=== PATIENT | female | born 1985 | race Caucasian/White ===

== ENCOUNTER 2017-01-17 20:23 | Emergency (ER) | payer MEDICAID, OTHER ==
[~2017-01-17] VITALS: Ht 172.7 cm; Wt 90.7 kg
[~2017-01-17 20:23] MED LIST: BENZ1TAB7 PO; DIPH25CA83 PO; ESCI10TA PO; FLUP10TA7 PO
[2017-01-17 20:52] LABS: *URINE HCG, QUAL NEGATIVE (NEGATIVE)
[2017-01-17 21:01] LABS: BASOPHILS % (AUTO) 0.6 % (0.0-2.0); EOSINOPHILS # (AUTO) 0.1 K/uL (0.0-0.7); EOSINOPHILS % (AUTO) 1.1 % (0.0-7.0); HEMATOCRIT 39.7 % (37-47); HEMOGLOBIN 13.8 G/DL (12.0-16.0); LYMPHOCYTES # (AUTO) 2.8 K/UL (0.8-4.8); LYMPHOCYTES % (AUTO) 35.3 % (20.5-51.5); MEAN CORPUSCULAR HEMOGLOBIN 31.9 UUG (27.0-31.0); MEAN CORPUSCULAR HGB CONC 35 g/dL (32.0-37.0); MONOCYTES # (AUTO) 0.5 K/UL (0.1-1.30); MONOCYTES % (AUTO) 5.9 % (0.0-11.0); NEUTROPHILS # (AUTO) 4.7 K/UL (1.8-8.9); NEUTROPHILS % (AUTO) 57.1 % (38.5-71.5); PLATELET COUNT (AUTO) 265 K/UL (150-450); RED BLOOD CELL COUNT(AUTO) 4.32 MIL/UL (4.2-5.4); WHITE BLOOD COUNT (AUTO) 8.1 K/UL (4.0-11.2)
[2017-01-17 21:07] LABS: CREATININE 0.8 mg/dL (0.6-1.3); POTASSIUM 3.9 mmol/L (3.5-5.1)
[2017-01-17 21:13] LABS: BILIRUBIN,TOTAL 0.2 mg/dL (0.2-1.0); TOTAL PROTEIN, SERUM 7.4 g/dL (6.4-8.2)
[2017-01-17] MEDS ORDERED: LORA0.5T PO (21:48)
[2017-01-17] MEDS ORDERED: TEMA30CA PO (21:48)
--- NOTE | 2017-01-17 21:59 | NUR ---
Patient discharged to home in stable conditon. Written and verbal after care instructions given. Patient verbalizes understanding of instructions.
== END 2017-01-17 22:00 | disposition home or self-care (01) ==
LOC: ER 20:23
DX: N92.0 Excessive and frequent menstruation with regular cycle (principal); N92.1 Excessive and frequent menstruation with irregular cycle; F17.210 Nicotine dependence, cigarettes, uncomplicated; Z88.0 Allergy status to penicillin; Z88.8 Allergy status to other drugs, medicaments and biological substances
CPT/HCPCS: 36415; 84703; 85025; 85610; A4663

== ENCOUNTER 2017-04-29 19:32 | Emergency (ER) | payer MEDICAID ==
[~2017-04-29] VITALS: Ht 172.7 cm; Wt 99.8 kg
[~2017-04-29 19:32] MED LIST changes: -DIPH25CA83 PO; +LORA0.5T PO; +TEMA30CA PO
--- NOTE | 2017-04-29 19:56 | NUR ---
DR. ALVARADO AT BEDSIDE FOR MSE.
[2017-04-29 20:13] VITALS: BP 114/79
--- NOTE | 2017-04-29 20:13 | NUR ---
Patient discharged to home in stable conditon. Written and verbal after care instructions given. Patient verbalizes understanding of instructions. PATIENT LEFT WITH STABLE GAIT, ACCOMPANIED BY MOTHER.
== END 2017-04-29 20:14 | disposition home or self-care (01) ==
LOC: ER 19:42
DX: M54.5 Low back pain (principal); Z88.0 Allergy status to penicillin; F17.200 Nicotine dependence, unspecified, uncomplicated
CPT/HCPCS: A4663

== ENCOUNTER 2017-05-16 23:53 | Emergency (ER) | payer MEDICAID, OTHER ==
[~2017-05-16] VITALS: Ht 172.7 cm; Wt 90.7 kg
--- NOTE | 2017-05-17 00:21 | NUR ---
Pt ambulated to room with steady gait. Pt c/o low back pain, denies dysuria, denies odor and denies hematuria. Pt resting in position of comfort for self. Dr. العلي at bedside for MSE
--- NOTE | 2017-05-17 00:36 | NUR ---
Pt seen by Dr. العلي. Pt stable for discharge per Dr. العلي. Pt given ACI. Pt verbalized understanding of dc instructions. Pt ambulated out of ER with steady gait.
[2017-05-17 00:38] VITALS: BP 116/73
== END 2017-05-17 00:38 | disposition home or self-care (01) ==
LOC: ER 23:56
DX: M54.5 Low back pain (principal); Z88.0 Allergy status to penicillin
CPT/HCPCS: A4663

== ENCOUNTER 2017-08-05 13:23 | Emergency (ER) | payer OTHER ==
[~2017-08-05] VITALS: Ht 172.7 cm; Wt 106.6 kg
[2017-08-05] MEDS ORDERED: OMEP20TA5 PO (13:54)
[2017-08-05] MEDS ORDERED: BACL10TA PO (13:54)
--- NOTE | 2017-08-05 14:13 | NUR ---
Dr Ba at the bedside for eval and exam.
[2017-08-05] MEDS ORDERED: diphenhydrAMINE 50 MG/1 ML VIAL IM ONE (14:30)
[2017-08-05] MEDS ORDERED: HYDROMORPHONE 1 MG/1 ML DISP.SYRIN IM ONE (14:30)
[2017-08-05] MEDS ORDERED: HYDROMORPHONE 2 MG/1 ML DISP.SYRIN ONE (14:41)
[2017-08-05] MEDS ORDERED: PROMETHAZINE HCL 25 MG/1 ML VIAL ONE (14:41)
[2017-08-05] MEDS ORDERED: diphenhydrAMINE 50 MG/1 ML VIAL ONE (14:53)
--- NOTE | 2017-08-05 15:09 | NUR ---
Patient discharged to home in stable conditon. Written and verbal after care instructions given. Patient verbalizes understanding of instructions. Pt left ER w/ steady gait accompained by parent.
[2017-08-05 15:12] VITALS: BP 121/80
== END 2017-08-05 15:13 | disposition home or self-care (01) ==
LOC: ER 13:23
DX: M51.26 Other intervertebral disc displacement, lumbar region (principal); Z88.0 Allergy status to penicillin; F17.200 Nicotine dependence, unspecified, uncomplicated
CPT/HCPCS: 96372 ×2; 99284; A4663; J1170; J1200; J2550

== ENCOUNTER 2018-03-03 21:42 | Emergency (ER) | payer OTHER ==
[~2018-03-03] VITALS: Ht 172.7 cm; Wt 113.4 kg
[~2018-03-03 21:42] MED LIST changes: +BACL10TA PO; -ESCI10TA PO; -LORA0.5T PO; +OMEP20TA5 PO
--- NOTE | 2018-03-03 22:09 | NUR ---
PT IN BED. PT'S MOTHER AT BEDSIDE. PT IN AAOX4. PT C/O ABSCESS ON TONGUE X 1 WK. PT'S LUNG SOUNDS ARE CLEAR. BREATH SOUNDS ARE EVEN AND UNLABORED. MD BOYD AT BEDSIDE FOR MSE. NO SIGNS OF DISTRESS WITNESSED AT THIS TIME.
--- NOTE | 2018-03-03 22:38 | NUR ---
Patient discharged to home in stable conditon. Written and verbal after care instructions given. Patient verbalizes understanding of instructions. Patient able to ambulate unassisted with a steady gait. Patient left with all personal belongings.
[2018-03-03 22:41] VITALS: BP 116/68
== END 2018-03-03 22:38 | disposition home or self-care (01) ==
LOC: ER 21:43
DX: K14.0 Glossitis (principal); F17.210 Nicotine dependence, cigarettes, uncomplicated; Z88.0 Allergy status to penicillin; Z88.8 Allergy status to other drugs, medicaments and biological substances; Z79.899 Other long term (current) drug therapy
CPT/HCPCS: 99283; A4663

== ENCOUNTER 2018-03-06 00:04 | Emergency (ER) | payer OTHER ==
[~2018-03-06] VITALS: Ht 172.7 cm; Wt 113.4 kg
--- NOTE | 2018-03-06 00:14 | NUR ---
PT PRESENTS TO ER W/ MULTIPLE COMPLAINTS, INCLUDING NICOLAS, NOSEBLEED X3 DAYS AGO. PER PT, SHE IS PRIMARILY CONCERNED W/ HAVING HAS SNORTED COCAINE APPROXIMATELY 5 DAYS AGO, WHICH SHE NOW BELIEVES HAD MAGGOTS AND SPIDERS, WHICH SHE STATES HAVE GONE TO HER BRAIN.
--- NOTE | 2018-03-06 01:40 | NUR ---
DR JAMIN ULLOA MD AT BEDSIDE FOR MSE.
[2018-03-06 02:22] LABS: *BILIRUBIN,URIN NEGATIVE (NEGATIVE); *BLOOD, URINE 3+ (NEGATIVE); *CLARITY,URINE CLEAR (CLEAR); *COLOR,URINE YELLOW (YELLOW); *KETONES,URINE NEGATIVE (NEGATIVE); *PROTEIN,URINE NEGATIVE (NEGATIVE); *UROBILINOGEN,URINE 0.2 E.U./dl (NORMAL); LEUKOCYTE ESTERASE ,URINE NEGATIVE (NEGATIVE); NITRITE, URINE NEGATIVE (NEGATIVE); UGLUCOSE NEGATIVE (NEGATIVE)
[2018-03-06 02:23] LABS: BASOPHILS % (AUTO) 0.4 % (0.0-2.0); EOSINOPHILS # (AUTO) 0.2 K/uL (0.0-0.7); EOSINOPHILS % (AUTO) 1.9 % (0.0-7.0); HEMATOCRIT 40.8 % (31.2-41.9); HEMOGLOBIN 14.2 g/dL (10.9-14.3); LYMPHOCYTES # (AUTO) 2.7 K/uL (20.0-40.0); LYMPHOCYTES % (AUTO) 29.3 % (20.5-51.5); MEAN CORPUSCULAR HEMOGLOBIN 32.1 uug (24.7-32.8); MEAN CORPUSCULAR HGB CONC 35 g/dL (32.3-35.6); MEAN CORPUSCULAR VOLUME 92.5 fL (75.5-95.3); MONOCYTES # (AUTO) 0.5 K/uL (2.0-10.0); MONOCYTES % (AUTO) 5.4 % (0.0-11.0); NEUTROPHILS # (AUTO) 5.7 K/uL (1.8-8.9); PLATELET COUNT (AUTO) 273 K/uL (179-408); RED BLOOD CELL COUNT(AUTO) 4.41 MIL/uL (3.63-4.92); WHITE BLOOD COUNT (AUTO) 9.1 K/uL (3.8-11.8)
[2018-03-06 02:31] LABS: BACTERIA,URINE NONE SEEN /HPF (NONE SEEN); SQUAMOUS EPITHELIAL CELL,UR FEW /HPF (NONE SEEN); WBC,URINE 0-3 /HPF (0-3)
[2018-03-06 02:32] LABS: *URINE HCG, QUAL NEGATIVE (NEGATIVE)
[2018-03-06 02:33] LABS: CREATININE 0.9 mg/dL (0.6-1.3); POTASSIUM 3.5 mmol/L (3.5-5.1)
[2018-03-06 02:44] LABS: BILIRUBIN,TOTAL 0.3 mg/dL (0.2-1.0); TOTAL PROTEIN, SERUM 7.6 g/dL (6.4-8.2)
--- NOTE | 2018-03-06 02:49 | NUR ---
PT TAKEN TO RADIOLOGY FOR CT SCAN VIA WHEELCHAIR. NO DISTRESS NOTED.
--- NOTE | 2018-03-06 04:15 | NUR ---
Patient discharged to home in stable conditon. Written and verbal after care instructions given. Patient verbalizes understanding of instructions. PT ambulated from ER accompanied by mother. No distress noted. PT took all personal belongings. Denies NICOLAS, dizziness, SOB, N/V, or SI.
[2018-03-06 04:18] VITALS: BP 119/74
== END 2018-03-06 04:19 | disposition home or self-care (01) ==
LOC: ER 00:07
DX: R51 Headache (principal); F17.210 Nicotine dependence, cigarettes, uncomplicated; Z88.0 Allergy status to penicillin; Z88.8 Allergy status to other drugs, medicaments and biological substances; Z79.899 Other long term (current) drug therapy
CPT/HCPCS: 36415; 70450; 80053; 81001; 84703; 85025; 99285; A4663

== ENCOUNTER 2018-10-09 04:58 | Emergency (ER) | payer OTHER ==
[~2018-10-09] VITALS: Ht 172.7 cm; Wt 117.9 kg
[2018-10-09] MEDS ORDERED: CEFTRIAXONE 1 G VIAL ONE (05:28)
[2018-10-09] MEDS ORDERED: LIDOCAINE 1%-EPI 1:100,000 20 ML VIAL TP ONE (05:30)
[2018-10-09] MEDS ORDERED: LIDOCAINE HCL 1% 20 ML VIAL ONE (05:30)
[2018-10-09] MEDS ORDERED: CEFTRIAXONE 1 G VIAL IM ONE (05:30)
[2018-10-09] MEDS ORDERED: SODIUM BICARBONATE 4.2 % (NEUT) 5 ML VIAL TP ONE (05:30)
--- NOTE | 2018-10-09 05:53 | NUR ---
Patient discharged to home in stable conditon. Written and verbal after care instructions given. Patient verbalizes understanding of instructions.
[2018-10-09 05:54] VITALS: BP 108/56
== END 2018-10-09 05:54 | disposition home or self-care (01) ==
LOC: ER 04:59
DX: L05.01 Pilonidal cyst with abscess (principal); F17.210 Nicotine dependence, cigarettes, uncomplicated; Z88.0 Allergy status to penicillin; Z88.8 Allergy status to other drugs, medicaments and biological substances; Z79.899 Other long term (current) drug therapy
CPT/HCPCS: 10080; 96372; 99284; J0696; J3490 ×3; A4663

== ENCOUNTER 2018-10-11 09:28 | Emergency (ER) | payer OTHER ==
[~2018-10-11] VITALS: Ht 172.7 cm; Wt 117.9 kg
--- NOTE | 2018-10-11 09:48 | NUR ---
Patient discharged to home in stable conditon & brisk steady gait. Written and verbal after care instructions given to patient and patient's mother. Patient and family verbalized understanding of instructions.
== END 2018-10-11 09:54 | disposition home or self-care (01) ==
LOC: ER 09:28
DX: L05.01 Pilonidal cyst with abscess (principal); F17.200 Nicotine dependence, unspecified, uncomplicated; Z88.0 Allergy status to penicillin; Z88.8 Allergy status to other drugs, medicaments and biological substances; Z79.899 Other long term (current) drug therapy
CPT/HCPCS: A4663

== ENCOUNTER 2019-02-03 21:31 | Emergency (ER) | payer MEDICARE, OTHER ==
[~2019-02-03] VITALS: Ht 172.7 cm; Wt 111.6 kg
--- NOTE | 2019-02-03 21:50 | NUR ---
pt stated she has had her period for three months on going, abd pain and n/v overall appearances fair abd soft tender to touch abd sl obese positive bowels sounds in all four quad has a bm today formed and voiding qs urine urine specimen no visual blood noted
[2019-02-03 22:13] LABS: BASOPHILS # (AUTO) 0.1 K/uL (0.0-8.0); BASOPHILS % (AUTO) 0.8 % (0.0-2.0); EOSINOPHILS # (AUTO) 0.2 K/uL (0.0-0.7); EOSINOPHILS % (AUTO) 2.8 % (0.0-7.0); HEMATOCRIT 40.8 % (31.2-41.9); HEMOGLOBIN 13.7 g/dL (10.9-14.3); LYMPHOCYTES # (AUTO) 2.9 K/uL (20.0-40.0); LYMPHOCYTES % (AUTO) 40.5 % (20.5-51.5); MEAN CORPUSCULAR HEMOGLOBIN 31.4 uug (24.7-32.8); MEAN CORPUSCULAR HGB CONC 34 g/dL (32.3-35.6); MEAN CORPUSCULAR VOLUME 93.4 fL (75.5-95.3); MONOCYTES # (AUTO) 0.5 K/uL (2.0-10.0); MONOCYTES % (AUTO) 7.4 % (0.0-11.0); NEUTROPHILS # (AUTO) 3.5 K/uL (1.8-8.9); NEUTROPHILS % (AUTO) 48.5 % (38.5-71.5); PLATELET COUNT (AUTO) 228 K/uL (179-408); RED BLOOD CELL COUNT(AUTO) 4.36 MIL/uL (3.63-4.92); WHITE BLOOD COUNT (AUTO) 7.3 K/uL (3.8-11.8)
[2019-02-03 22:17] LABS: *BILIRUBIN,URIN NEGATIVE (NEGATIVE); *BLOOD, URINE 2+ (NEGATIVE); *CLARITY,URINE CLEAR (CLEAR); *COLOR,URINE YELLOW (YELLOW); *KETONES,URINE NEGATIVE (NEGATIVE); *UROBILINOGEN,URINE 0.2 E.U./dl (NORMAL); LEUKOCYTE ESTERASE ,URINE NEGATIVE (NEGATIVE); NITRITE, URINE NEGATIVE (NEGATIVE); PH,URINE 6.5 (5.0-8.0); UGLUCOSE NEGATIVE (NEGATIVE)
[2019-02-03] MEDS ORDERED: ONDANSETRON 4 MG/2 ML VIAL ONE (22:18)
[2019-02-03] MEDS ORDERED: PANTOPRAZOLE SODIUM 40 MG VIAL ONE (22:18)
[2019-02-03 22:19] LABS: *URINE HCG, QUAL NEGATIVE (NEGATIVE)
[2019-02-03 22:20] LABS: CREATININE 0.8 mg/dL (0.6-1.3); POTASSIUM 3.8 mmol/L (3.5-5.1)
[2019-02-03 22:24] LABS: BACTERIA,URINE FEW /HPF (NONE SEEN); SQUAMOUS EPITHELIAL CELL,UR FEW /HPF (NONE SEEN); WBC,URINE 0-3 /HPF (0-3)
[2019-02-03 22:26] LABS: BILIRUBIN,DIRECT 0.1 mg/dL (0.0-0.2); BILIRUBIN,TOTAL 0.3 mg/dL (0.2-1.0); TOTAL PROTEIN, SERUM 7.1 g/dL (6.4-8.2)
[2019-02-03] MEDS: IV NORMAL SALINE 1000 ML BAG IV ONE (22:30)
[2019-02-03] MEDS: PANTOPRAZOLE SODIUM 40 MG VIAL IV ONE (22:30)
[2019-02-03] MEDS: ONDANSETRON 4 MG/2 ML VIAL IV ONE (22:30)
--- NOTE | 2019-02-03 23:00 | NUR ---
was medicated time one with zofran, protonix and a liter of normal saline nolvia well denied allergies meds effective comfort and safety maintained
--- NOTE | 2019-02-03 23:29 | NUR ---
pt discharge to home discharge and prescription teaching given hl removed site within normal limit denies pain/discomfort at this time
[2019-02-03 23:59] VITALS: BP 108/60
== END 2019-02-03 23:29 | disposition home or self-care (01) ==
LOC: ER 21:33
DX: K29.70 Gastritis, unspecified, without bleeding (principal); N93.9 Abnormal uterine and vaginal bleeding, unspecified; F17.210 Nicotine dependence, cigarettes, uncomplicated; Z88.0 Allergy status to penicillin; Z88.8 Allergy status to other drugs, medicaments and biological substances; Z79.899 Other long term (current) drug therapy
CPT/HCPCS: 36415; 80048; 80076; 81000; 81001; 83690; 84703; 85025; 96374; 96375; 99283; C9113; J2405 ×2; A4663; J7030

== ENCOUNTER 2019-02-06 20:15 | Emergency (ER) | payer MEDICARE, OTHER ==
[~2019-02-06] VITALS: Ht 172.7 cm; Wt 111.1 kg
[2019-02-06] MEDS ORDERED: FAMOTIDINE 20 MG TABLET (20:49)
[2019-02-06] MEDS ORDERED: MELO-105 PO (20:49)
[2019-02-06] MEDS ORDERED: [UNRECOGNIZED DRUG - REMARK] (20:49)
--- NOTE | 2019-02-06 21:11 | NUR ---
Urine Specimen to Laboratory.
--- NOTE | 2019-02-06 21:16 | NUR ---
Phleb. tech. at bedside, blood and urine collected and sent to lab,
[2019-02-06 21:23] LABS: *URINE HCG, QUAL NEGATIVE (NEGATIVE); BASOPHILS # (AUTO) 0.1 K/uL (0.0-8.0); BASOPHILS % (AUTO) 0.5 % (0.0-2.0); EOSINOPHILS # (AUTO) 0.2 K/uL (0.0-0.7); EOSINOPHILS % (AUTO) 1.6 % (0.0-7.0); HEMATOCRIT 39.7 % (31.2-41.9); HEMOGLOBIN 13.6 g/dL (10.9-14.3); LYMPHOCYTES # (AUTO) 2.3 K/uL (20.0-40.0); LYMPHOCYTES % (AUTO) 21.2 % (20.5-51.5); MEAN CORPUSCULAR HEMOGLOBIN 31.8 uug (24.7-32.8); MEAN CORPUSCULAR HGB CONC 34 g/dL (32.3-35.6); MEAN CORPUSCULAR VOLUME 92.7 fL (75.5-95.3); MONOCYTES # (AUTO) 0.5 K/uL (2.0-10.0); MONOCYTES % (AUTO) 4.8 % (0.0-11.0); NEUTROPHILS # (AUTO) 7.7 K/uL (1.8-8.9); NEUTROPHILS % (AUTO) 71.9 % (38.5-71.5); PLATELET COUNT (AUTO) 231 K/uL (179-408); RED BLOOD CELL COUNT(AUTO) 4.28 MIL/uL (3.63-4.92); WHITE BLOOD COUNT (AUTO) 10.7 K/uL (3.8-11.8)
[2019-02-06 21:24] LABS: *BILIRUBIN,URIN NEGATIVE (NEGATIVE); *BLOOD, URINE 2+ (NEGATIVE); *CLARITY,URINE CLEAR (CLEAR); *COLOR,URINE LIGHT YELLOW (YELLOW); *KETONES,URINE NEGATIVE (NEGATIVE); *UROBILINOGEN,URINE 0.2 E.U./dl (NORMAL); LEUKOCYTE ESTERASE ,URINE NEGATIVE (NEGATIVE); NITRITE, URINE NEGATIVE (NEGATIVE); PH,URINE 6.5 (5.0-8.0); UGLUCOSE NEGATIVE (NEGATIVE)
[2019-02-06 21:30] LABS: CREATININE 0.8 mg/dL (0.6-1.3); POTASSIUM 3.6 mmol/L (3.5-5.1)
[2019-02-06 21:36] LABS: BILIRUBIN,DIRECT 0.1 mg/dL (0.0-0.2); BILIRUBIN,TOTAL 0.4 mg/dL (0.2-1.0); TOTAL PROTEIN, SERUM 7.3 g/dL (6.4-8.2)
[2019-02-06 21:44] LABS: RBC,URINE 0-3 /HPF (0-3); SQUAMOUS EPITHELIAL CELL,UR FEW /HPF (NONE SEEN); WBC,URINE 0-3 /HPF (0-3)
--- NOTE | 2019-02-06 22:44 | NUR ---
Pt. taken off unit for CT via stretcher by [employer]
--- NOTE | 2019-02-06 23:14 | NUR ---
Mother at bedside w/ outside food, pt. instructed not to eat pending results of CT,
--- NOTE | 2019-02-06 23:38 | NUR ---
Called [facility] for CT results
--- NOTE | 2019-02-07 00:23 | NUR ---
Patient discharged to home in stable conditon. Written and verbal after care instructions given. Patient verbalizes understanding of instructions. Pt. d/c per MD order, d/c papers signed, all belongings w/ pt., ID band removed, ambulated off unit w/ steady gait accompanied by mother, NAD
== END 2019-02-07 00:25 | disposition home or self-care (01) ==
LOC: ER 20:17
DX: K62.5 Hemorrhage of anus and rectum (principal); R10.9 Unspecified abdominal pain; F17.210 Nicotine dependence, cigarettes, uncomplicated; Z88.0 Allergy status to penicillin; Z88.8 Allergy status to other drugs, medicaments and biological substances; Z79.899 Other long term (current) drug therapy
CPT/HCPCS: 36415; 83690; 84703; 85025; A4663

== ENCOUNTER 2019-02-18 14:21 | Emergency (ER) | payer MEDICARE, OTHER ==
[~2019-02-18] VITALS: Ht 172.7 cm; Wt 111.1 kg
[~2019-02-18 14:21] MED LIST changes: +FAMOTIDINE 20 MG TABLET; +MELO-105 PO; -OMEP20TA5 PO; +[UNRECOGNIZED DRUG - REMARK]
--- NOTE | 2019-02-18 14:31 | NUR ---
RECEIVED PT AMBULATORY CO #2 FINGER(L HAND) LACERATION FROM PICKING UP BLADE 02/17/2019. CAME IN WITH WOUND WITH BAND AID. ALERT AND ORIENTED, +PAIN TO SITE, NOT IN DISTRESS. MD AT BEDSIDE FOR HX AND PHYS. +WOUND CARE
[2019-02-18] MEDS ORDERED: TDAP DIPH,PERTUSS,TET VAC/PF 0.5 ML DISP.SYRIN IM ONE ×2 (14:42→14:45)
--- NOTE | 2019-02-18 14:50 | NUR ---
Patient discharged to home in stable conditon. Written and verbal after care instructions given. Patient verbalizes understanding of instructions. ambulatory all belongings with patient.
[2019-02-18 14:55] VITALS: BP 124/78
== END 2019-02-18 14:50 | disposition home or self-care (01) ==
LOC: ER 14:21
DX: S61.211A Laceration without foreign body of left index finger without damage to nail, initial encounter (principal); F17.210 Nicotine dependence, cigarettes, uncomplicated; Z88.0 Allergy status to penicillin; Z88.8 Allergy status to other drugs, medicaments and biological substances; Z79.899 Other long term (current) drug therapy; W26.8XXA Contact with other sharp object(s), not elsewhere classified, initial encounter; Y93.89 Activity, other specified; Y92.89 Other specified places as the place of occurrence of the external cause; Y99.8 Other external cause status
CPT/HCPCS: 90715; A4663

== ENCOUNTER 2019-05-30 17:18 | Emergency (ER) | payer MEDICARE, OTHER ==
[~2019-05-30] VITALS: Ht 172.7 cm; Wt 99.8 kg
--- NOTE | 2019-05-30 18:53 | NUR ---
Awaiting to be seen by .
--- NOTE | 2019-05-30 18:53 | NUR ---
Report given to incoming r.n.
--- NOTE | 2019-05-30 19:22 | NUR ---
Patient discharged to home in stable conditon. Written and verbal after care instructions given. Patient verbalizes understanding of instructions. Patient ambulated with stable gait.
[2019-05-30 19:29] VITALS: BP 110/76
== END 2019-05-30 19:30 | disposition home or self-care (01) ==
LOC: ER 17:22
DX: L05.91 Pilonidal cyst without abscess (principal); F17.210 Nicotine dependence, cigarettes, uncomplicated; F20.9 Schizophrenia, unspecified; Z88.0 Allergy status to penicillin; Z88.8 Allergy status to other drugs, medicaments and biological substances; Z79.899 Other long term (current) drug therapy
CPT/HCPCS: A4663

== ENCOUNTER 2020-01-21 15:36 | Emergency (ER) | payer OTHER ==
[~2020-01-21] VITALS: Ht 172.7 cm; Wt 79.4 kg
[2020-01-21] MEDS ORDERED: LORA-259 PO (15:54)
[2020-01-21] MEDS ORDERED: PALI9TAB PO (15:54)
[2020-01-21] MEDS ORDERED: PALI6TAB PO (15:54)
[2020-01-21] MEDS ORDERED: KETOROLAC TROMETHAMINE 60 MG INJ IM ONE ×2 (16:15→16:31)
[2020-01-21 16:22] LABS: *URINE HCG, QUAL NEGATIVE (NEGATIVE)
--- NOTE | 2020-01-21 16:53 | NUR ---
Patient discharged to home in stable condition. Written and verbal after care instructions given. Patient verbalizes understanding of instructions. Stressed follow up or return to ER for worsening s/s.
[2020-01-21 16:56] VITALS: BP 111/68
== END 2020-01-21 16:57 | disposition home or self-care (01) ==
LOC: ER 15:38
DX: S43.401A Unspecified sprain of right shoulder joint, initial encounter (principal); W10.9XXA Fall (on) (from) unspecified stairs and steps, initial encounter; Y92.89 Other specified places as the place of occurrence of the external cause; Z82.49 Family history of ischemic heart disease and other diseases of the circulatory system; K21.9 Gastro-esophageal reflux disease without esophagitis; F20.9 Schizophrenia, unspecified; Z79.899 Other long term (current) drug therapy
CPT/HCPCS: 73030; 84703; 96372; 99284; J1885; A4663

== ENCOUNTER 2020-02-03 17:07 | Emergency (ER) | payer OTHER ==
[~2020-02-03] VITALS: Ht 172.7 cm; Wt 79.4 kg
[~2020-02-03 17:07] MED LIST changes: -BACL10TA PO; -FLUP10TA7 PO; +LORA-259 PO; -MELO-105 PO; +PALI6TAB PO; +PALI9TAB PO; -TEMA30CA PO
[2020-02-03] MEDS ORDERED: PANTOPRAZOLE SODIUM 40 MG VIAL IV ONE (17:30)
[2020-02-03 17:32] LABS: *BILIRUBIN,URIN NEGATIVE (NEGATIVE); *BLOOD, URINE NEGATIVE (NEGATIVE); *CLARITY,URINE CLEAR (CLEAR); *COLOR,URINE YELLOW (YELLOW); *KETONES,URINE NEGATIVE (NEGATIVE); *UROBILINOGEN,URINE 0.2 E.U./dl (NORMAL); LEUKOCYTE ESTERASE ,URINE NEGATIVE (NEGATIVE); NITRITE, URINE NEGATIVE (NEGATIVE); UGLUCOSE NEGATIVE (NEGATIVE)
[2020-02-03 17:32] LABS: BASOPHILS % (AUTO) 0.2 % (0.0-2.0); EOSINOPHILS % (AUTO) 0.3 % (0.0-7.0); HEMATOCRIT 36.8 % (31.2-41.9); HEMOGLOBIN 12.6 g/dL (10.9-14.3); LYMPHOCYTES # (AUTO) 1.6 K/uL (20.0-40.0); LYMPHOCYTES % (AUTO) 16.9 % (20.5-51.5); MEAN CORPUSCULAR HEMOGLOBIN 33.5 uug (24.7-32.8); MEAN CORPUSCULAR HGB CONC 34 g/dL (32.3-35.6); MEAN CORPUSCULAR VOLUME 98.2 fL (75.5-95.3); MONOCYTES # (AUTO) 0.5 K/uL (2.0-10.0); MONOCYTES % (AUTO) 5.3 % (0.0-11.0); NEUTROPHILS # (AUTO) 7.3 K/uL (1.8-8.9); NEUTROPHILS % (AUTO) 77.3 % (38.5-71.5); PLATELET COUNT (AUTO) 207 K/uL (179-408); RED BLOOD CELL COUNT(AUTO) 3.75 MIL/uL (3.63-4.92); WHITE BLOOD COUNT (AUTO) 9.5 K/uL (3.8-11.8)
[2020-02-03] MEDS ORDERED: PANTOPRAZOLE SODIUM 40 MG VIAL ONE (17:33)
[2020-02-03 17:37] LABS: *URINE HCG, QUAL NEGATIVE (NEGATIVE)
[2020-02-03 17:45] LABS: POTASSIUM 3.2 mmol/L (3.5-5.1)
[2020-02-03 17:50] LABS: BILIRUBIN,DIRECT 0.2 mg/dL (0.0-0.2); BILIRUBIN,TOTAL 0.9 mg/dL (0.2-1.0)
[2020-02-03 17:51] LABS: TOTAL PROTEIN, SERUM 7.4 g/dL (6.4-8.2)
[2020-02-03] MEDS ORDERED: HYDROMORPHONE 1 MG/1 ML DISP.SYRIN ONE (18:59)
[2020-02-03] MEDS ORDERED: HYDROMORPHONE 1 MG/1 ML DISP.SYRIN IV ONE (19:00)
[2020-02-03] MEDS ORDERED: POTASSIUM CHLORIDE 20 MEQ TAB.PRT.SR PO ONE (19:00)
[2020-02-03] MEDS ORDERED: POTASSIUM CHLORIDE 20 MEQ TAB.PRT.SR ONE (19:04)
--- NOTE | 2020-02-03 19:12 | NUR ---
Patient does not wish to proceed with medical care recommended by ( good). Patient given information related to possible complications, up to and including , which could occur as a result of leaving the hospital at this time. Patient verbalizes understanding of risks involved due to leaving against medical advice. Patient has signed AMA form.acopy of all the studies provided for pt and pt mother.
[2020-02-03 19:15] VITALS: BP 129/61
== END 2020-02-03 19:17 | disposition left against medical advice (07) ==
LOC: ER 17:10
DX: R10.84 Generalized abdominal pain (principal); F17.210 Nicotine dependence, cigarettes, uncomplicated; Z82.49 Family history of ischemic heart disease and other diseases of the circulatory system; K21.9 Gastro-esophageal reflux disease without esophagitis; F20.9 Schizophrenia, unspecified; Z79.899 Other long term (current) drug therapy
CPT/HCPCS: 36415; 71045; 74176; 76705; 76856; 80048; 80076; 81001; 83690; 84703; 85025; 96374; 96375; 99285; 99406; C9113; J1170; A4663

== ENCOUNTER 2022-06-27 22:48 | Emergency (ER) | payer OTHER ==
[~2022-06-27] VITALS: Ht 172.7 cm; Wt 56.7 kg
--- NOTE | 2022-06-27 23:10 | NUR ---
After being triaged, patient was placed back in the waiting to wait for bed opening.
--- NOTE | 2022-06-28 | NUR ---
Patient was called to be placed in room but patient was not present in the waiting room pr outside of ER.
--- NOTE | 2022-06-28 00:30 | NUR ---
Patient was called to be placed in room but was not present in the waiting room or outside of ER. Patient was triaged but was not seen by ERMD.
== END 2022-06-28 00:30 | disposition left against medical advice (07) ==
LOC: ER 22:50
DX: Z53.21 Procedure and treatment not carried out due to patient leaving prior to being seen by health care provider (principal)